=== PATIENT | male | born 1990 | race Caucasian/White ===

== ENCOUNTER 2017-02-17 16:20 | Emergency (ER) | payer SELFPAY | END 2017-02-17 17:14 | disposition home or self-care (01) | LOC: ER 16:20 | DX: B86 Scabies (principal); F17.210 Nicotine dependence, cigarettes, uncomplicated ==

== ENCOUNTER 2017-03-04 16:17 | Emergency (ER) | payer OTHER | END 2017-03-04 20:10 | disposition short-term general hospital (02) | LOC: ER 16:17 | DX: J36 Peritonsillar abscess (principal); F17.210 Nicotine dependence, cigarettes, uncomplicated | CPT/HCPCS: 36415; 87651; 96365; 96367; 96375; 96376; J0696; J1100; Q9967 ==